=== PATIENT | female | born 1995 | race Caucasian/White ===

== ENCOUNTER 2018-01-26 14:03 | Emergency (ER) | payer BC ==
[~2018-01-26] VITALS: Ht 154.9 cm; Wt 95.2 kg
[2018-01-26] MEDS ORDERED: FAMOTIDINE 20 MG TABLET PO ONE (16:00)
[2018-01-26] MEDS ORDERED: DIPHENHYDRAMINE 25 MG CAPSULE PO ONE (16:00)
[2018-01-26] MEDS ORDERED: FAMOTIDINE 20 MG TABLET ONE (16:07)
[2018-01-26] MEDS ORDERED: DIPHENHYDRAMINE 25 MG CAPSULE ONE (16:07)
[2018-01-26] MEDS ORDERED: CEPHALEXIN 500 MG CAPSULE ONE (16:14)
[2018-01-26] MEDS ORDERED: CEPHALEXIN 500 MG CAPSULE PO ONE (16:30)
[2018-01-26 16:37] VITALS: BP 126/63
== END 2018-01-26 17:36 | disposition home or self-care (01) ==
LOC: ED 15:00
DX: R21 Rash and other nonspecific skin eruption (principal)
CPT/HCPCS: 99284; Q0163